=== PATIENT | female | born 1940 | race Caucasian/White ===

== ENCOUNTER 2019-11-24 15:07 | Outpatient (CLI) | payer MEDICARE ==
[2019-11-24 16:05] LABS: #Basophils 0.1 thou/uL (0.0-0.2); #Eosinphils 0.2 thou/uL (0.0-0.7); #Lymphocytes 0.7 thou/uL (1.20-3.40); #Monocytes 0.5 thou/uL (0.11-0.59); %Basophils 1.1 % (0.0-1.0); %Eosinophils 1.9 % (0.0-10.0); %Lymphocytes 5.9 % (21.0-51.0); %Monocytes 4.6 % (0.0-10.0); %Neutrophils 86.5 % (42.0-75.0); Hemoglobin 11.2 g/dL (12.0-16.0); Mean Corpuscular HGB CONC 31.5 g/dL (32.0-36.0); Mean Corpuscular Hemoglobin 28.7 pg (27.0-31.0); Mean Corpuscular Volume 91.2 fL (78.0-98.0); Mean Platelet Volume 8.5 fL (7.4-10.4); Platelet Count 258 thou/uL (130-400); RBC Distribution Width 12.9 % (11.5-14.5); Red Blood Cell (RBC) Count 3.89 mill/uL (4.20-5.40); White Blood Cell (WBC) Count 11.6 thou/uL (4.8-10.8)
[2019-11-24 16:13] LABS: ALT (SGPT) Less than 7 U/L (8-55); AST (SGOT) 6 U/L (5-34); Albumin 3.9 g/dL (3.4-4.8); Alkaline Phosphatase 83 U/L (40-110); Anion Gap 19 mmol/L (10-20); BUN (Urea Nitrogen) 17 mg/dL (9.8-20.1); Bilirubin, Total 0.2 mg/dL (0.2-1.2); Calc. Creatinine Clearance 0 mL/min (70-130); Carbon Dioxide 39 mmol/L (23-31); Estimated GFR-MDRD 52; Globulin 2.7 g/dL (2.4-3.5); Glucose 131 mg/dL (83-110); Protein, Total 6.6 g/dL (6.0-8.3)
[2019-11-24 16:16] LABS: Chloride 81 mmol/L (98-107); Potassium 3.8 mmol/L (3.5-5.1); Sodium 134 mmol/L (136-145)
[2019-11-24 20:58] LABS: Hemoglobin A1c 6.2 % (4.0-6.0)
--- NOTE | 2019-11-27 07:41 | RAD ---
EXAM: Chest 2 views: HISTORY: Dyspnea on exertion COMPARISON: None. FINDINGS: There is an enlarged cardiomediastinal silhouette. Increased interstitial markings are present. The re is no evidence of consolidation, mass, or pleural effusion.Degenerative changes are seen in the spine. IMPRESSION: No evidence of acute cardiopulmonary disease
== END 2019-11-24 15:08 | disposition home or self-care (01) ==
LOC: BURRAD 15:07
PROVIDERS: ATTEND Family Medicine
DX: E11.9 Type 2 diabetes mellitus without complications (principal); I50.32 Chronic diastolic (congestive) heart failure; R06.09 Other forms of dyspnea
CPT/HCPCS: 36415; 71046; 80053; 83036; 83880; 85025